=== PATIENT | male | born 1945 | race Caucasian/White ===

== ENCOUNTER → 2017-09-14 | Outpatient (CLI) | payer MEDICARE ==
[2017-05-28 15:35] VITALS: BMI 26.1
[~2017-09-14] MED LIST: ASPI-1471 PO; ASPI-757 PO; ASPI-764 PO; ATEN-65 PO; ATOR-1 PO; BUP100 PO; CIPR-245 PO; CLOP75TA PO; DIA5 PO; DOC100 PO; GAB300 PO; HCTZ25 PO; HYDR-389 PO; HYDR2TAB4 PO; HYDR2TAB42 PO; LISI-362 PO; LISI20TA29 PO; METF-410 PO; ONDA4TAB9 PO; OXYC-823 PO; OXYC5CAP21 PO; PER PO; PNEU0.5D3 IM; SIMV-49 PO; SPIR1TAB26 PO; SPIR25TA78 PO; TRAM-420 PO; TRAZ-156 PO; TRIA15CR40 TP; VER100 PO; VERA180C8 PO; VYTORIN; [UNRECOGNIZED DRUG - CODE] PO
== END ==
LOC: LAB 14:32
PROVIDERS: ATTEND Physician Assistant
DX: I25.10 Atherosclerotic heart disease of native coronary artery without angina pectoris (principal)
CPT/HCPCS: 36415; 82310; 82374; 82435; 82565; 82947; 84132; 84295; 84520

== ENCOUNTER → 2017-10-05 | Outpatient (CLI) | payer MEDICARE ==
[2017-05-28 15:35] VITALS: BMI 26.1
== END ==
LOC: LAB 11:10
PROVIDERS: ATTEND Physician Assistant
DX: I10 Essential (primary) hypertension (principal)
CPT/HCPCS: 36415; 82310; 82374; 82435; 82565; 82947; 84132; 84295; 84520

== ENCOUNTER → 2018-03-08 | Outpatient (CLI) | payer MEDICARE ==
[2017-05-28 15:35] VITALS: BMI 26.1
[~2018-03-08] MED LIST changes: -METF-410 PO; +METF-411 PO
[2018-03-08 07:20] LABS: PLATELET COUNT, AUTOMATED 213 K/uL (150-450)
[2018-03-08 08:22] LABS: LDL CHOLESTEROL 25 mg/dl
== END ==
LOC: LAB 06:58
PROVIDERS: ATTEND Nurse Practitioner Family
DX: Z12.5 Encounter for screening for malignant neoplasm of prostate (principal); Z00.00 Encounter for general adult medical examination without abnormal findings; E11.9 Type 2 diabetes mellitus without complications; E78.00 Pure hypercholesterolemia, unspecified; I10 Essential (primary) hypertension
CPT/HCPCS: 36415; 83036; 85025; G0103; 82040; 82247; 82310; 82374; 82435; 82465; 82565; 82947; 83718; 84075; 84132; 84153; 84155; 84295; 84450; 84460; 84478; 84520

== ENCOUNTER → 2018-07-07 | Outpatient (CLI) | payer MEDICARE ==
[2017-05-28 15:35] VITALS: BMI 26.1
[~2018-07-07] MED LIST changes: +LISI-374 PO; -METF-411 PO; +METF-450 PO; +PNEI IM; -SPIR25TA78 PO; +SPIR25TA80 PO; -TRAZ-156 PO; +TRAZ50TA34 PO
== END ==
LOC: LAB 07:16
PROVIDERS: ATTEND Nurse Practitioner Family
DX: E11.9 Type 2 diabetes mellitus without complications (principal)
CPT/HCPCS: 36415; 82040; 82247; 82310; 82374; 82435; 82565; 82947; 83036; 84075; 84132; 84155; 84295; 84450; 84460; 84520

== ENCOUNTER → 2018-09-06 | Outpatient (CLI) | payer OTHER, MEDICARE ==
[2017-05-28 15:35] VITALS: BMI 26.1
[~2018-09-06] MED LIST changes: +NEBI2.5T PO
[2018-09-06 08:06] LABS: PLATELET COUNT, AUTOMATED 233 K/uL (150-450)
== END ==
LOC: LAB 07:48
PROVIDERS: ATTEND Surgery
DX: I73.9 Peripheral vascular disease, unspecified (principal)
CPT/HCPCS: 36415; 82310; 82374; 82435; 82565; 82947; 84132; 84295; 84520; 85025

== ENCOUNTER → 2019-03-20 | Outpatient (CLI) | payer OTHER, MEDICARE ==
[2017-05-28 15:35] VITALS: BMI 26.1
[~2019-03-20] MED LIST changes: +SERT-184 PO; -TRAZ50TA34 PO; +TRAZ50TA52 PO; +VARI50KI IM
== END ==
LOC: LAB 09:49
PROVIDERS: ATTEND Nurse Practitioner Family
DX: Z12.5 Encounter for screening for malignant neoplasm of prostate (principal); E11.9 Type 2 diabetes mellitus without complications
CPT/HCPCS: 36415; 83036; 84153